=== PATIENT | male | born 1955 | race African-American/Black ===

== ENCOUNTER 2016-10-18 19:16 | Emergency (ER) | payer BC ==
[2016-10-19 02:43] VITALS: BP 134/83
== END 2016-10-19 02:43 | disposition home or self-care (01) ==
LOC: ED 19:16
DX: M25.512 Pain in left shoulder (principal); I10 Essential (primary) hypertension; V43.92XA Unspecified car occupant injured in collision with other type car in traffic accident, initial encounter; Y93.89 Activity, other specified; Y99.8 Other external cause status; Y92.89 Other specified places as the place of occurrence of the external cause
CPT/HCPCS: J1885; J3010; J7030; Q0092